=== PATIENT | male | born 1940 | race Caucasian/White ===

== ENCOUNTER 2020-11-27 14:40 | Inpatient (IN) | payer MEDICARE, OTHER ==
[~2020-11-27] VITALS: Ht 152.4 cm; Wt 69.3 kg
[~2020-11-27 14:40] MED LIST: CALC667C10 PO; CHLO50TA PO; FOLI0.8T22 PO; FURO80TA87 PO; RANI-662 PO; TAMS-1 PO; TEMA30CA PO
[2020-11-27] MEDS ORDERED: DEXTROSE 50%-WATER 50 ML DISP.SYRIN IV ONE (14:47)
[2020-11-27 15:47] LABS: BASOPHILS % (AUTO) 0.3 % (0.0-5.0); EOSINOPHILS % (AUTO) 1.2 % (0.0-8.0); HEMATOCRIT 25.7 % (42-54); LYMPHOCYTES % (AUTO) 3.5 % (21.0-51.0); MEAN CORPUSCULAR HEMOGLOBIN 35.7 pg (27.0-33.0); MEAN CORPUSCULAR HGB CONC 34.6 g/dL (32.0-36.0); MEAN CORPUSCULAR VOLUME 103.2 fL (79-99); MONOCYTES % (AUTO) 6.3 % (3.0-13.0); NEUTROPHILS % (AUTO) 87.9 % (40.0-77.0); PLATELET COUNT (AUTO) 129 K/uL (130-400); RED BLOOD CELL COUNT(AUTO) 2.49 MIL/uL (4.50-6.20); RED CELL DISTRIBUTION WIDTH 22.5 % (11.0-15.5); WHITE BLOOD COUNT (AUTO) 14.1 K/uL (4.8-10.8)
[2020-11-27 16:09] LABS: INR 1.61 (0.85-1.15); PARTIAL THROMBOPLASTIN TIME 33.3 SEC (26.3-35.5); PROTHROMBIN TIME 16.2 SEC (9.6-11.6)
[2020-11-27 16:25] LABS: ALANINE AMINOTRANSFERASE 286 U/L (12-78); ALBUMIN 3.1 g/dL (3.5-5.0); ASPARTATE AMINOTRANSFERASE 303 U/L (10-37); BILIRUBIN,TOTAL 3.9 mg/dL (0.2-1.0); CARBON DIOXIDE 25 mmol/L (21-32); CHLORIDE 92 mmol/L (101-111); CREATININE 6.8 mg/dL (0.5-1.5); GLOMERULAR FILTR. RATE CALC 8 mL/min (>60); GLUCOSE,RANDOM 99 mg/dL (70-105); POTASSIUM 4.9 mmol/L (3.5-5.1); SODIUM SERUM 135 mmol/L (136-145); TOTAL PROTEIN, SERUM 6.3 g/dL (6.0-8.3)
[2020-11-27] MEDS ORDERED: CEFTRIAXONE 1G VIAL ONE (16:25)
[2020-11-27] MEDS ORDERED: AZITHROMYCIN 250 MG TABLET PO ONE (16:25)
[2020-11-27 16:26] LABS: LIPASE < 50 U/L (114-286)
[2020-11-27 16:27] LABS: CREATINE KINASE, TOTAL 408 U/L (21-232); UREA NITROGEN, BLOOD 75 mg/dL (7-18)
[2020-11-27 16:44] LABS: B-TYPE NATRIURETIC PEPTIDE 2820 pg/mL (0-100)
[2020-11-27] MEDS ORDERED: ASPIRIN 325 MG TABLET ONE (17:06)
[2020-11-27 17:07] LABS: ABG BASE EXCESS -3.1 mmol/L (-2.0-3.0); ABG HCO3 24.1 mmol/L (21.0-28.0); ABG PCO2 51 mmHg (35-48)
[2020-11-27] MEDS: PHARMACY COMMUNICATION MISC SCH (18:00)
[2020-11-27] MEDS ORDERED: GLUCAGON 1MG KIT 1 MG ML IM PRN (18:00)
[2020-11-27] MEDS ORDERED: NOREPINEPHRIN 4MG/NS 250ML 250 ML IV SCH (18:00)
[2020-11-27] MEDS ORDERED: VANCOMYCIN PROTOCOL PER PHARMACY IV SCH (18:00)
[2020-11-27 18:18] LABS: ABG BASE EXCESS -3.1 mmol/L (-2.0-3.0); ABG HCO3 25.2 mmol/L (21.0-28.0); ABG OXYGEN SATURATION 47.9 % (95.0-99.0); ABG PCO2 59 mmHg (35-48)
[2020-11-27] MEDS ORDERED: GUAIFENESIN-DM 200/20 MG 10 ML PO PRN (18:30)
[2020-11-27] MEDS ORDERED: ONDANSETRON 4MG INJ IV PRN (18:30)
[2020-11-27] MEDS ORDERED: MAG/ALUM/SIMETH 30 ML UDCUP PO PRN (18:30)
[2020-11-27] MEDS ORDERED: LACTULOSE 20 GM/30 ML UDCUP PO PRN (18:30)
[2020-11-27] MEDS ORDERED: DiphenhydrAMINE HCL 50 MG/ML VIAL IV PRN (18:30)
[2020-11-27] MEDS ORDERED: NITROGLYCERIN 0.4 MG SL TAB SL PRN (18:30)
[2020-11-27] MEDS ORDERED: DIPHENHYDRAMINE HCL 25 MG CAPSULE PO PRN (18:30)
[2020-11-27] MEDS ORDERED: ACETAMINOPHEN 325 MG TAB PO PRN ×2 (18:30)
[2020-11-27] MEDS ORDERED: ZOSYN 3.375GM+NS 50ML 50 ML IV ONE (18:37)
[2020-11-27] MEDS ORDERED: VANCOMYCIN 1G/250ML KIT 250 ML IV SCH (19:45)
[2020-11-27] MEDS ORDERED: RENAL DOSE IV SCH (19:45)
[2020-11-27] MEDS ORDERED: VANCOMYCIN 1G/250ML KIT 250 ML IV ONE ×2 (20:00→22:08)
[2020-11-27] MEDS ORDERED: DEXTROSE 10%-WATER 1,000 ML IV ONE (20:32)
[2020-11-27] MEDS ORDERED: HEPARIN 25,000 UNITS/250ML D5W 250 ML IV ONE (22:07)
[2020-11-27] MEDS ORDERED: FAMOTIDINE 20MG VIAL IV ONE (22:08)
[2020-11-27 22:20] LABS: INR 1.6 (0.85-1.15); PARTIAL THROMBOPLASTIN TIME 51.8 SEC (26.3-35.5); PROTHROMBIN TIME 16.1 SEC (9.6-11.6)
[2020-11-27 22:28] LABS: TROPONIN I 8.23 ng/mL (0.00-0.06)
[2020-11-28] VITALS (60 sets, daily range): BP systolic 81–138; BP diastolic 35–83
[2020-11-28] MEDS: INSULIN HUMULIN R 100 UNIT/ML 3ML SQ SCH ×5 (00:15→21:00)
[2020-11-28] MEDS: DEXTROSE 10%-WATER 1,000 ML IV SCH ×3 (00:15→23:10)
[2020-11-28] MEDS: FAMOTIDINE 20MG VIAL IV SCH ×2 (00:15→21:50)
[2020-11-28] MEDS: ZOSYN 3.375GM+NS 50ML 50 ML IV SCH ×2 (00:15→06:24)
[2020-11-28] MEDS: PHARMACY COMMUNICATION MISC SCH ×5 (00:15→21:50)
[2020-11-28 06:58] LABS: BASOPHILS % (AUTO) 0.5 % (0.0-5.0); HEMATOCRIT 27.3 % (42-54); LYMPHOCYTES % (AUTO) 3.7 % (21.0-51.0); MEAN CORPUSCULAR HEMOGLOBIN 34.2 pg (27.0-33.0); MEAN CORPUSCULAR HGB CONC 33.7 g/dL (32.0-36.0); MEAN CORPUSCULAR VOLUME 101.5 fL (79-99); MONOCYTES % (AUTO) 9.3 % (3.0-13.0); NEUTROPHILS % (AUTO) 83.6 % (40.0-77.0); PLATELET COUNT (AUTO) 127 K/uL (130-400); RED BLOOD CELL COUNT(AUTO) 2.69 MIL/uL (4.50-6.20); RED CELL DISTRIBUTION WIDTH 22.4 % (11.0-15.5); WHITE BLOOD COUNT (AUTO) 15.3 K/uL (4.8-10.8)
[2020-11-28 08:02] LABS: ALBUMIN 2.8 g/dL (3.5-5.0); BILIRUBIN,TOTAL 4.4 mg/dL (0.2-1.0); CREATININE 6.8 mg/dL (0.5-1.5); POTASSIUM 5.3 mmol/L (3.5-5.1); TOTAL PROTEIN, SERUM 5.8 g/dL (6.0-8.3)
[2020-11-28 08:41] LABS: TROPONIN I 6.04 ng/mL (0.00-0.06)
[2020-11-28 08:49] LABS: CRP QUANTITATIVE 321.7 mg/L (0.00-9.0)
[2020-11-28 08:54] LABS: HEMOGLOBIN A1C 4.9 % (4.0-6.0)
[2020-11-28 09:26] LABS: CHOLESTEROL 123 mg/dL (<200); HDL CHOLESTEROL 12 mg/dL (29-71); LDL DIRECT 45 mg/dL (0-99); TRIGLYCERIDES 270 mg/dL (30-200)
[2020-11-28 09:30] LABS: % IRON SATURATION 92.1 % (30-44)
[2020-11-28 09:57] LABS: ABG BASE EXCESS -2.1 mmol/L (-2.0-3.0); ABG HCO3 23.8 mmol/L (21.0-28.0); ABG OXYGEN SATURATION 85.2 % (95.0-99.0); ABG PCO2 46 mmHg (35-48)
[2020-11-28] MEDS ORDERED: LORAZEPAM 2 MG/ML 1 ML VIAL ONE (15:01)
[2020-11-28] MEDS ORDERED: LORAZEPAM 2 MG/ML 1 ML VIAL IVP ONE (16:15)
[2020-11-28] MEDS ORDERED: ALBUMIN FOR BP SUPPORT MISC PRN (16:45)
[2020-11-28] MEDS ORDERED: HEPARIN 5,000 UNIT VIAL IJ PRN ×2 (16:45)
[2020-11-28] MEDS ORDERED: NITROGLYCERIN 0.4 MG SL TAB SL PRN (16:45)
[2020-11-28] MEDS ORDERED: 0.9%NACL 1000ML IV PRN (16:45)
[2020-11-28] MEDS ORDERED: LIDOCAINE HCL-MPF 1% 2ML VIAL IJ PRN (16:45)
[2020-11-28] MEDS ORDERED: 0.9%NACL 1000ML 1,000 ML IV PRN (16:45)
[2020-11-28] MEDS ORDERED: ACETAMINOPHEN 325 MG TAB PO PRN (16:45)
[2020-11-28] MEDS: MEROPENEM 1 GM VIAL IVP SCH (18:06)
[2020-11-28 18:29] LABS: HEMATOCRIT 25.2 % (42-54)
[2020-11-29] VITALS (89 sets, daily range): BP systolic 53–145; BP diastolic 21–108
[2020-11-29] MEDS: PHARMACY COMMUNICATION MISC SCH ×5 (01:37→22:00)
[2020-11-29 03:44] LABS: BASOPHILS % (AUTO) 0.4 % (0.0-5.0); EOSINOPHILS % (AUTO) 2.3 % (0.0-8.0); HEMATOCRIT 23.7 % (42-54); LYMPHOCYTES % (AUTO) 3.4 % (21.0-51.0); MEAN CORPUSCULAR HEMOGLOBIN 35.1 pg (27.0-33.0); MEAN CORPUSCULAR HGB CONC 35.4 g/dL (32.0-36.0); MEAN CORPUSCULAR VOLUME 99.2 fL (79-99); MONOCYTES % (AUTO) 10.4 % (3.0-13.0); NEUTROPHILS % (AUTO) 82.1 % (40.0-77.0); PLATELET COUNT (AUTO) 111 K/uL (130-400); RED BLOOD CELL COUNT(AUTO) 2.39 MIL/uL (4.50-6.20); RED CELL DISTRIBUTION WIDTH 22.1 % (11.0-15.5); WHITE BLOOD COUNT (AUTO) 18.8 K/uL (4.8-10.8)
[2020-11-29 03:52] LABS: ALBUMIN 2.5 g/dL (3.5-5.0); BILIRUBIN,TOTAL 5.5 mg/dL (0.2-1.0); CREATININE 4.7 mg/dL (0.5-1.5); POTASSIUM 4.1 mmol/L (3.5-5.1); TOTAL PROTEIN, SERUM 5.3 g/dL (6.0-8.3)
[2020-11-29 04:03] LABS: CRP QUANTITATIVE 253.1 mg/L (0.00-9.0)
[2020-11-29 04:31] LABS: MAGNESIUM 1.7 mg/dL (1.80-2.40); PHOSPHORUS 4.5 mg/dL (2.5-4.9)
[2020-11-29] MEDS: INSULIN HUMULIN R 100 UNIT/ML 3ML SQ SCH ×4 (07:04→21:00)
[2020-11-29] MEDS: PHENYLEPHRINE HCL 10 MG in 0.9% NACL 250ML 250 ML IV PRN (09:53)
[2020-11-29 10:18] LABS: ALBUMIN 2.6 g/dL (3.5-5.0); BILIRUBIN,DIRECT 4.3 mg/dL (0.0-0.3); BILIRUBIN,TOTAL 5.4 mg/dL (0.2-1.0); TOTAL PROTEIN, SERUM 4.8 g/dL (6.0-8.3)
[2020-11-29] MEDS ORDERED: HYDROMORPHONE 1 MG INJ IVP PRN (10:30)
[2020-11-29] MEDS ORDERED: HYDROMORPHONE 1 MG INJ ONE (10:31)
[2020-11-29] MEDS: MIDODRINE HCL 5 MG TABLET PO SCH ×3 (10:42→22:00)
[2020-11-29] MEDS ORDERED: AMIODARONE 150MG VIAL 150 MG in DEXTROSE 5%-WATER 100 ML IV SCH (16:45)
[2020-11-29] MEDS ORDERED: AMIODARONE 900MG VIAL 360 MG in DEXTROSE 5%-WATER 200 ML IV SCH (17:00)
[2020-11-29] MEDS: MEROPENEM 1 GM VIAL IVP SCH (17:42)
[2020-11-29] MEDS: DEXTROSE 50%-WATER 50 ML DISP.SYRIN IV PRN (21:59)
[2020-11-29] MEDS: FAMOTIDINE 20MG VIAL IV SCH (21:59)
[2020-11-29] MEDS: METOPROLOL TARTRATE 25 MG TAB PO SCH (22:00)
[2020-11-29] MEDS ORDERED: AMIODARONE 900MG VIAL 450 MG in DEXTROSE 5%-WATER 250 ML IV SCH (23:00)
[2020-11-30] VITALS (75 sets, daily range): BP systolic 75–141; BP diastolic 34–105
[2020-11-30] MEDS: PHARMACY COMMUNICATION MISC SCH ×6 (02:31→22:00)
[2020-11-30 03:38] LABS: BASOPHILS % (AUTO) 0.5 % (0.0-5.0); EOSINOPHILS % (AUTO) 2.4 % (0.0-8.0); HEMATOCRIT 24.6 % (42-54); LYMPHOCYTES % (AUTO) 5.2 % (21.0-51.0); MEAN CORPUSCULAR HEMOGLOBIN 34.6 pg (27.0-33.0); MEAN CORPUSCULAR HGB CONC 34.1 g/dL (32.0-36.0); MEAN CORPUSCULAR VOLUME 101.2 fL (79-99); MONOCYTES % (AUTO) 11.8 % (3.0-13.0); NEUTROPHILS % (AUTO) 77.5 % (40.0-77.0); PLATELET COUNT (AUTO) 137 K/uL (130-400); RED BLOOD CELL COUNT(AUTO) 2.43 MIL/uL (4.50-6.20); RED CELL DISTRIBUTION WIDTH 22.2 % (11.0-15.5); WHITE BLOOD COUNT (AUTO) 17.8 K/uL (4.8-10.8)
[2020-11-30 03:54] LABS: ALBUMIN 2.4 g/dL (3.5-5.0); BILIRUBIN,TOTAL 4.6 mg/dL (0.2-1.0); CREATININE 5.5 mg/dL (0.5-1.5); POTASSIUM 4.7 mmol/L (3.5-5.1); TOTAL PROTEIN, SERUM 5.3 g/dL (6.0-8.3)
[2020-11-30] MEDS: INSULIN HUMULIN R 100 UNIT/ML 3ML SQ SCH (06:40)
[2020-11-30] MEDS: MIDODRINE HCL 5 MG TABLET PO SCH ×3 (06:40→20:29)
[2020-11-30] MEDS: HEPARIN 25,000 UNITS/250ML D5W 250 ML IV SCH (06:41)
[2020-11-30 06:44] LABS: CRP QUANTITATIVE 253.9 mg/L (0.00-9.0)
[2020-11-30] MEDS: METOPROLOL TARTRATE 25 MG TAB PO SCH ×2 (08:49→20:59)
[2020-11-30] MEDS ORDERED: VANCOMYCIN 500MG+NS 100ML 100 ML IV SCH (09:00)
[2020-11-30] MEDS: DEXTROSE 50%-WATER 50 ML DISP.SYRIN IV PRN ×2 (15:14→21:16)
[2020-11-30] MEDS: MEROPENEM 1 GM VIAL IVP SCH (17:27)
[2020-12-01] VITALS (72 sets, daily range): BP systolic 81–148; BP diastolic 40–102
[2020-12-01] MEDS: PHENYLEPHRINE HCL 10 MG in 0.9% NACL 250ML 250 ML IV PRN (01:12)
[2020-12-01] MEDS: PHARMACY COMMUNICATION MISC SCH ×6 (02:00→23:07)
[2020-12-01] MEDS: DEXTROSE 50%-WATER 50 ML DISP.SYRIN IV PRN ×2 (02:16→07:30)
[2020-12-01 03:09] LABS: HEPATITIS Bs ANTIGEN SCREEN P Negative (Negative)
[2020-12-01 05:15] LABS: BASOPHILS % (AUTO) 0.6 % (0.0-5.0); EOSINOPHILS % (AUTO) 1.7 % (0.0-8.0); HEMATOCRIT 22.9 % (42-54); MEAN CORPUSCULAR HEMOGLOBIN 35.2 pg (27.0-33.0); MEAN CORPUSCULAR HGB CONC 35.8 g/dL (32.0-36.0); MEAN CORPUSCULAR VOLUME 98.3 fL (79-99); MONOCYTES % (AUTO) 10.7 % (3.0-13.0); NEUTROPHILS % (AUTO) 75.9 % (40.0-77.0); NUCLEATED RED BLOOD CELLS 0.1 % (0.0-0.19); PLATELET COUNT (AUTO) 175 K/uL (130-400); RED BLOOD CELL COUNT(AUTO) 2.33 MIL/uL (4.50-6.20); RED CELL DISTRIBUTION WIDTH 22.4 % (11.0-15.5); WHITE BLOOD COUNT (AUTO) 21.9 K/uL (4.8-10.8)
[2020-12-01] MEDS: MIDODRINE HCL 5 MG TABLET PO SCH ×3 (05:17→22:51)
[2020-12-01 05:50] LABS: POTASSIUM 5.3 mmol/L (3.5-5.1)
[2020-12-01 06:12] LABS: ALBUMIN 2.5 g/dL (3.5-5.0); BILIRUBIN,TOTAL 4.9 mg/dL (0.2-1.0); CREATININE 6.4 mg/dL (0.5-1.5); MAGNESIUM 2.1 mg/dL (1.80-2.40); TOTAL PROTEIN, SERUM 4.7 g/dL (6.0-8.3)
[2020-12-01] MEDS: PANTOPRAZOLE 40 MG TAB DR PO SCH (07:30)
[2020-12-01] MEDS ORDERED: DILTIAZEM 120MG SR CAP PO SCH (09:00)
[2020-12-01] MEDS: METOPROLOL TARTRATE 25 MG TAB PO SCH ×3 (09:00→20:15)
[2020-12-01] MEDS: HEPARIN 25,000 UNITS/250ML D5W 250 ML IV SCH (11:02)
[2020-12-01] MEDS: MEROPENEM 1 GM VIAL IVP SCH (17:33)
[2020-12-01] MEDS ORDERED: HYDROMORPHONE 0.5 MG SYG (0.5MG/0.5ML) IVP PRN (19:30)
[2020-12-01] MEDS ORDERED: LORAZEPAM 2 MG/ML 1 ML VIAL IVP PRN (19:30)
[2020-12-02] VITALS (48 sets, daily range): BP systolic 94–139; BP diastolic 37–100
[2020-12-02] MEDS: PHARMACY COMMUNICATION MISC SCH ×2 (02:00→05:16)
[2020-12-02] MEDS: MIDODRINE HCL 5 MG TABLET PO SCH ×2 (05:15→14:00)
[2020-12-02 06:32] LABS: BASOPHILS % (AUTO) 0.6 % (0.0-5.0); EOSINOPHILS % (AUTO) 2.6 % (0.0-8.0); HEMATOCRIT 22.7 % (42-54); LYMPHOCYTES % (AUTO) 6.8 % (21.0-51.0); MEAN CORPUSCULAR HEMOGLOBIN 34.1 pg (27.0-33.0); MEAN CORPUSCULAR HGB CONC 33.9 g/dL (32.0-36.0); MEAN CORPUSCULAR VOLUME 100.4 fL (79-99); MONOCYTES % (AUTO) 9.8 % (3.0-13.0); NEUTROPHILS % (AUTO) 74.7 % (40.0-77.0); NUCLEATED RED BLOOD CELLS 0.1 % (0.0-0.19); PLATELET COUNT (AUTO) 207 K/uL (130-400); RED BLOOD CELL COUNT(AUTO) 2.26 MIL/uL (4.50-6.20); RED CELL DISTRIBUTION WIDTH 23.2 % (11.0-15.5); WHITE BLOOD COUNT (AUTO) 20.6 K/uL (4.8-10.8)
[2020-12-02 06:46] LABS: ALBUMIN 2.3 g/dL (3.5-5.0); BILIRUBIN,TOTAL 4.9 mg/dL (0.2-1.0); CREATININE 4.5 mg/dL (0.5-1.5); POTASSIUM 4.7 mmol/L (3.5-5.1); TOTAL PROTEIN, SERUM 4.9 g/dL (6.0-8.3)
[2020-12-02] MEDS: PANTOPRAZOLE 40 MG TAB DR PO SCH (07:51)
[2020-12-02] MEDS: METOPROLOL TARTRATE 25 MG TAB PO SCH ×2 (09:00→14:00)
== END 2020-12-02 12:36 | disposition hospice, inpatient (51) | DRG 871 ==
LOC: EDH 14:40 → EDHIP 18:24 → 2CH 11-28 00:11
PROVIDERS: ADMIT Family Medicine; ATTEND Family Medicine
PROC: 5A1D70Z Performance of Urinary Filtration, Intermittent, Less than 6 Hours Per Day (ICD-10-PCS; principal; 2020-11-28)
PROC: 05HY33Z Insertion of Infusion Device into Upper Vein, Percutaneous Approach (ICD-10-PCS; 2020-11-29)
PROC: B54MZZA Ultrasonography of Right Upper Extremity Veins, Guidance (ICD-10-PCS; 2020-11-29)
PROC: 5A1D70Z Performance of Urinary Filtration, Intermittent, Less than 6 Hours Per Day (ICD-10-PCS; 2020-12-01)
DX: A41.59 Other Gram-negative sepsis (principal); R65.21 Severe sepsis with septic shock; J96.01 Acute respiratory failure with hypoxia; N18.6 End stage renal disease; E43 Unspecified severe protein-calorie malnutrition; I21.A1 Myocardial infarction type 2; G93.41 Metabolic encephalopathy; K72.00 Acute and subacute hepatic failure without coma; R57.0 Cardiogenic shock; I50.43 Acute on chronic combined systolic (congestive) and diastolic (congestive) heart failure; E87.1 Hypo-osmolality and hyponatremia; D68.59 Other primary thrombophilia; I13.2 Hypertensive heart and chronic kidney disease with heart failure and with stage 5 chronic kidney disease, or end stage renal disease; I42.9 Cardiomyopathy, unspecified; R18.8 Other ascites; N13.30 Unspecified hydronephrosis; Z51.5 Encounter for palliative care; Z66 Do not resuscitate; Z99.2 Dependence on renal dialysis; D69.6 Thrombocytopenia, unspecified; D63.1 Anemia in chronic kidney disease; E11.649 Type 2 diabetes mellitus with hypoglycemia without coma; E11.22 Type 2 diabetes mellitus with diabetic chronic kidney disease; I48.91 Unspecified atrial fibrillation; I50.82 Biventricular heart failure; I87.2 Venous insufficiency (chronic) (peripheral); K75.89 Other specified inflammatory liver diseases; N32.89 Other specified disorders of bladder; N40.0 Benign prostatic hyperplasia without lower urinary tract symptoms; R31.0 Gross hematuria; R53.81 Other malaise; Z20.822 Contact with and (suspected) exposure to COVID-19; Z04.3 Encounter for examination and observation following other accident; W01.0XXA Fall on same level from slipping, tripping and stumbling without subsequent striking against object, initial encounter; Z82.49 Family history of ischemic heart disease and other diseases of the circulatory system; Z83.3 Family history of diabetes mellitus; Z91.19 Patient's noncompliance with other medical treatment and regimen; Z68.29 Body mass index [BMI] 29.0-29.9, adult; Y93.89 Activity, other specified; Y99.8 Other external cause status; Y92.009 Unspecified place in unspecified non-institutional (private) residence as the place of occurrence of the external cause; Z90.49 Acquired absence of other specified parts of digestive tract
CPT/HCPCS: 36415; 36600; 71045; 71250; 74176; 76700; 80053; 80061; 80076; 82435; 82550; 82728; 82803; 82947; 82948; 83036; 83540; 83550; 83605; 83690; 83735; 83874; 83880; 84100; 84132; 84145; 84295; 84484; 85014; 85018; 85025; 85378; 85610; 85730; 86140; 86701; 86704; 86706; 86850; 86900; 86901; 87040; 87077; 87088; 87186; 87340; 87390; 87426; 87520; 87804; 90935; 92507; 92610; 93005; 93306; 93356; 99291; C1751; C1894; G0378; J0282; J0696; J1170; J1644; J2060; J2185; J2370; J2543; J3370; J3490; J7030; J7050; J7060; J7070; U0003

== ENCOUNTER 2020-12-02 12:37 | Inpatient (IN) | payer OTHER ==
[2020-12-02] MEDS ORDERED: MORPHINE 2 MG SYG IM PRN (16:31)
[2020-12-02] MEDS ORDERED: ONDANSETRON 4MG INJ IVP PRN (16:31)
[2020-12-02] MEDS ORDERED: LORAZEPAM 2 MG/ML 1 ML VIAL IM PRN (16:31)
[2020-12-02] MEDS ORDERED: ACETAMINOPHEN 650 MG SUPPOSITORY RC PRN (16:32)
[2020-12-02] MEDS ORDERED: GLYCOPYRROLATE 1 MG/5 ML SYRINGE IV PRN (16:33)
[2020-12-02] MEDS ORDERED: BISACODYL 10 MG SUPP.RECT RC PRN (16:33)
[2020-12-02] MEDS: MORPHINE 2 MG SYG IV PRN (18:23)
[2020-12-02 19:29] VITALS: BP 131/58
[2020-12-02] MEDS ORDERED: LORAZEPAM 2 MG/ML 1 ML VIAL IVP PRN (20:31)
[2020-12-03] MEDS: MORPHINE 2 MG SYG IV PRN ×3 (06:34→14:25)
[2020-12-03 20:00] VITALS: BP 115/80
[2020-12-03 22:50] VITALS: BP 68/50
== END 2020-12-04 00:50 | disposition expired | DRG 682 ==
LOC: 2CH 12:37 → 3BH 17:42
PROVIDERS: ADMIT Internal Medicine; ATTEND Internal Medicine
DX: I12.0 Hypertensive chronic kidney disease with stage 5 chronic kidney disease or end stage renal disease (principal); N18.6 End stage renal disease; Z51.5 Encounter for palliative care; Z66 Do not resuscitate; E11.22 Type 2 diabetes mellitus with diabetic chronic kidney disease; Z99.2 Dependence on renal dialysis; Z91.19 Patient's noncompliance with other medical treatment and regimen; I25.2 Old myocardial infarction
CPT/HCPCS: G0378; J2060